=== PATIENT | female | born 1985 | race Hispanic/Latino ===

== ENCOUNTER 2019-01-06 08:19 | Emergency (ER) | payer SELFPAY ==
[2019-01-06] MEDS ORDERED: Dexamethasone 10 MG/ML VIAL ONE (08:59)
== END 2019-01-06 09:19 | disposition home or self-care (01) ==
LOC: ERS 08:19
DX: J02.9 Acute pharyngitis, unspecified (principal)
CPT/HCPCS: 87081; 87430; 87804; 99283; J1100